=== PATIENT | female | born 1990 | race Caucasian/White ===

== ENCOUNTER 2025-01-03 15:42 | Emergency (ER) | payer OTHER ==
[~2025-01-03] VITALS: Ht 149.9 cm; Wt 73.9 kg
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
--- NOTE | 2025-01-03 17:04 | RADIOLOGY REPORT ---
CT CT HEAD Indication: CHRONIC CARVALHO/FALLS EXAM DATE: 01/03/2025 04:32 PM COMPARISON: None TECHNIQUE: CT of the head without intravenous contrast. RADIATION DOSE: CTDIvol: 54 mGy, DLP: 940 mGy*cm FINDINGS: There is a left frontal mass measuring 2.4 x 2.2 cm with extensive surrounding vasogenic edema. Exten sive vasogenic edema within the right temporal lobe, likely secondary to an underlying mass. Diffuse cerebral crowding and sulcal effacement. Ventricles are compressed. Cisterns are patent. Mastoids w ell pneumatized. Paranasal sinuses well pneumatized. Orbits and retrobulbar spaces unremarkable. IMPRESSION: 1. Left frontal mass measuring 2.4 cm with extensive left frontotemporal vasogenic edema. There is al so extensive vasogenic edema within the right temporal lobe also suspected to be secondary to underly ing mass /neoplasm. Recommend MRI brain with and without contrast and neurosurgical consultation. 2. Diffuse cerebral sulcal effacement /crowding secondary to the cerebral edema. Findings were communicated to Marlon in the emergency room at 5:00 p.m. On 01/03/2005.
[2025-01-03 17:36] LABS: BILIRUBIN,URINE NEGATIVE (Neg); COLOR,URINE YELLOW (Yellow); GLUCOSE, URINE NEGATIVE (Neg); KETONES,URINE TRACE mg/dl (Neg); LEUKOCYTE ESTERASE ,URINE NEGATIVE (Neg); NITRITES, URINE NEGATIVE (Neg); OCCULT BLOOD,URINE NEGATIVE (Neg); PH,URINE 6.5 (4.8-8.0); PROTEIN,URINE NEGATIVE (Neg); UROBILINOGEN,URINE 0.2 E.U/dL (0.2-1.0)
[2025-01-03 17:40] LABS: URINE HCG NEGATIVE (NEG)
[2025-01-03 17:41] LABS: CLARITY,URINE SLIGHTLY CLOUDY (Clear); UA COLLECTION TYPE CLN CATCH MIDSTREAM
[2025-01-03 17:43] LABS: SQUAMOUS EPITHELIAL CELL,UR MANY /LPF (FEW)
[2025-01-03 17:46] LABS: BACTERIA,URINE 1+ /HPF (Neg)
[2025-01-03 17:47] LABS: RBC,URINE NONE SEEN /HPF (0-2); WBC,URINE 0-4 /HPF (0-4)
[2025-01-03 17:48] LABS: MUCUS STRANDS NONE SEEN /LPF (Neg); TRANSITIONAL EPI CELLS,URINE FEW /HPF
[2025-01-03] MEDS ORDERED: GADOTERATE MEGLUMINE 7.5 MMOL/15 ML VIAL IV ONE (18:56)
[2025-01-03 19:04] LABS: BASOPHILS % (AUTO) 0.4 % (0-1); EOSINOPHILS # (AUTO) 0.1 X10'3 (0-0.9); EOSINOPHILS % (AUTO) 0.6 % (0-6); HEMATOCRIT 40.2 % (35.0-45.0); HEMOGLOBIN 13.6 g/dl (12.0-16.0); LYMPHOCYTES # (AUTO) 1.9 X10'3 (1.1-4.8); LYMPHOCYTES % (AUTO) 18.6 % (21-51); MEAN CORPUSCULAR HEMOGLOBIN 30.1 PG (27.0-31.0); MEAN CORPUSCULAR HGB CONC 33.8 g/dL (33.0-36.5); MEAN CORPUSCULAR VOLUME 89.2 FL (78-98); MEAN PLATELET VOLUME 7.9 FL (7.4-10.4); MONOCYTES # (AUTO) 0.7 X10'3 (0-0.9); NEUTROPHILS # (AUTO) 7.6 X10'3 (1.8-7.7); NEUTROPHILS % (AUTO) 73.4 % (42-75); PLATELET COUNT 328 X10'3 (140-440); RED CELL DISTRIBUTION WIDTH 13.3 % (11.5-14.5); WHITE BLOOD COUNT 10.4 X10'3 (4.5-11.0)
[2025-01-03 19:17] LABS: ALANINE AMINOTRANSFERASE 17 U/L (12-78); ALBUMIN 3.9 G/DL (3.4-5.0); ALBUMIN/GLOBULIN RATIO 1.1 (1.1-1.5); ALKALINE PHOSPHATASE 84 IU/L (46-116); ANION GAP 9 (8-16); ASPARTATE AMINO TRANSFERASE 10 U/L (10-37); BILIRUBIN,TOTAL 0.2 MG/DL (0.1-1.0); BLOOD UREA NITROGEN 8 MG/DL (7-18); BUN/CREATININE RATIO 8.3 (10.0-20.0); CALCIUM 8.8 MG/DL (8.5-10.1); CHLORIDE 105 MMOL/L (99-107); CREATININE 0.96 MG/DL (0.40-0.90); GLUCOSE 98 MG/DL (70-104); LIPASE 31 U/L (16-77); POTASSIUM 3.9 MMOL/L (3.5-5.1); SODIUM 142 MMOL/L (135-145); TOTAL CARBON DIOXIDE 28.1 MMOL/L (24-32); TOTAL PROTEIN 7.5 G/DL (6.4-8.2); eCRCL 56 ML/MIN; eGFR 66 ML/MIN
--- NOTE | 2025-01-03 19:24 | RADIOLOGY REPORT ---
PROCEDURE: MR MRI HEAD Indication: CT abnormality with and without contrast COMPARISON: CT CT HEAD on DOS: 01/03/25 TECHNIQUE: Multiplanar multisequence images of the brain are obtained with and without contrast. FINDINGS: Left inferior frontal enhancing measuring 2.2 x 2.0 cm. Extensive vasogenic edema within the left fr ontal lobe extending inferiorly into the superior aspect of the left temporal low. There is tetherin g of the adjacent dura. Right temporal masses measuring 2.2 x 1.6 cm and 1.5 x 1.1 cm with extensive vasogenic edema in the right temporal lobe extending to the subinsular region. No acute cerebrovascul ar ischemia. Ventricles are midline and slightly compressed secondary to the extensive edematous akilah nges. Cisterns patent. Major intracranial flow voids intact. Mastoids well pneumatized. Orbits and retrobulbar spaces unremarkable. IMPRESSION: 1. 3 enhancing masses within the brain including left frontal mass measuring 2.2 cm and right frontal masses measuring 2.2 cm and 1.5 cm with extensive surrounding vasogenic edema changes. These findin gs are most concerning for metastatic disease / malignancy. Recommend oncology and neurosurgical cons ultation for further management.
[2025-01-03 21:09] VITALS: BP 102/74; PULSE 80; RESP 16; TEMP 98.1; O2SAT 99
== END 2025-01-03 21:11 ==
LOC: ER 15:43
DX: G93.6 Cerebral edema (principal); G93.89 Other specified disorders of brain
CPT/HCPCS: 36415; 70450; 70553; 80053; 81001; 81025; 83690; 85025; 99284; 99285